=== PATIENT | female | born 1990 | race Caucasian/White ===

== ENCOUNTER 2018-09-07 14:21 | Emergency (ER) | payer MEDICAID, OTHER ==
[~2018-09-07] VITALS: Ht 162.6 cm; Wt 57.4 kg
[~2018-09-07 14:21] MED LIST: NO HOME MEDS
[2018-09-07 14:52] LABS: BASOPHILS % (AUTO) 0.7 % (0-1); EOSINOPHILS # (AUTO) 0.1 X10'3 (0-0.9); EOSINOPHILS % (AUTO) 2.4 % (0-6); HEMATOCRIT 45.9 % (35.0-45.0); HEMOGLOBIN 15.3 g/dl (12.0-16.0); LYMPHOCYTES # (AUTO) 1.8 X10'3 (1.1-4.8); LYMPHOCYTES % (AUTO) 29.8 % (21-51); MEAN CORPUSCULAR HEMOGLOBIN 30.4 PG (27.0-31.0); MEAN CORPUSCULAR HGB CONC 33.4 g/dL (33.0-36.5); MEAN PLATELET VOLUME 7.6 FL (7.4-10.4); MONOCYTES # (AUTO) 0.6 X10'3 (0-0.9); MONOCYTES % (AUTO) 9.7 % (2-12); NEUTROPHILS # (AUTO) 3.4 X10'3 (1.8-7.7); NEUTROPHILS % (AUTO) 57.4 % (42-75); PLATELET COUNT 277 X10'3 (140-440); RED BLOOD COUNT 5.04 X10'6 (4.20-5.60); RED CELL DISTRIBUTION WIDTH 12.9 % (11.5-14.5); WHITE BLOOD COUNT 5.9 X10'3 (4.5-11.0)
[2018-09-07 15:04] LABS: INR 1.1 INR; PARTIAL THROMBOPLASTIN TIME 30 SECONDS (22-32)
[2018-09-07 15:13] LABS: ALANINE AMINOTRANSFERASE 18 U/L (12-78); ALBUMIN 3.7 G/DL (3.4-5.0); ALBUMIN/GLOBULIN RATIO 1.1 (1.1-1.5); ALKALINE PHOSPHATASE 78 IU/L (46-116); ANION GAP 9 (8-16); ASPARTATE AMINO TRANSFERASE 13 U/L (10-37); BILIRUBIN,TOTAL 0.3 MG/DL (0.1-1.0); BLOOD UREA NITROGEN 10 MG/DL (7-18); BUN/CREATININE RATIO 11.4 (6.6-38.0); CALCIUM 9.2 MG/DL (8.5-10.1); CHLORIDE 104 MMOL/L (99-107); CREATININE 0.88 MG/DL (0.40-0.90); GLUCOSE 84 MG/DL (70-104); POTASSIUM 3.6 MMOL/L (3.5-5.1); SODIUM 138 MMOL/L (135-145); TOTAL CARBON DIOXIDE 24.7 MMOL/L (24-32); TOTAL PROTEIN 7.1 G/DL (6.4-8.2); eGFR 78 ML/MIN
[2018-09-07] MEDS ORDERED: sucralfate 1 gm tablet PO ONE (15:15)
[2018-09-07] MEDS ORDERED: mag hydrox/Alum hydrox/simeth 30ml oral suspension PO ONE (15:15)
[2018-09-07] MEDS ORDERED: LIDOcaine Viscous 15ml cup PO ONE (15:15)
[2018-09-07 15:30] VITALS: BP 125/80
[2018-09-07 15:44] LABS: URINE HCG NEGATIVE (NEG)
[2018-09-07 15:47] LABS: CLARITY,URINE CLEAR (Clear); COLOR,URINE YELLOW (Yellow); GLUCOSE, URINE NEGATIVE (Neg); KETONES,URINE NEGATIVE (Neg); LEUKOCYTE ESTERASE ,URINE NEGATIVE (Neg); NITRITES, URINE NEGATIVE (Neg); OCCULT BLOOD,URINE NEGATIVE (Neg); PROTEIN,URINE NEGATIVE (Neg); UA COLLECTION TYPE CLN CATCH MIDSTREAM
== END 2018-09-07 15:53 | disposition home or self-care (01) ==
LOC: ER 14:21
DX: R07.89 Other chest pain (principal); R10.13 Epigastric pain; R42 Dizziness and giddiness; R19.7 Diarrhea, unspecified; Z88.1 Allergy status to other antibiotic agents; Z88.0 Allergy status to penicillin
CPT/HCPCS: 36415; 71045; 80053; 81003; 81025; 84443; 84484; 85025; 85610; 85730; 93005; 99284

== ENCOUNTER 2020-05-30 16:02 | Emergency (ER) | payer BC, MEDICAID ==
[~2020-05-30] VITALS: Ht 162.6 cm; Wt 56.8 kg
[2020-05-30 16:16] VITALS: BP 130/82
[2020-05-30] MEDS ORDERED: ketorolac tromethamine 15mg/ml inj. IM ONE (16:45)
[2020-05-30] MEDS ORDERED: IBUP-1984 PO (16:52)
== END 2020-05-30 17:34 | disposition home or self-care (01) ==
LOC: ER 16:03
DX: M25.561 Pain in right knee (principal); Z72.89 Other problems related to lifestyle; Z88.1 Allergy status to other antibiotic agents; Z88.0 Allergy status to penicillin; Z79.899 Other long term (current) drug therapy
CPT/HCPCS: 29505; 73564; 99284

== ENCOUNTER 2020-06-20 02:06 | Emergency (ER) | payer BC, MEDICAID ==
[~2020-06-20] VITALS: Ht 162.6 cm; Wt 56.8 kg
[2020-06-20 02:07] VITALS: BP 123/87
[2020-06-20] MEDS ORDERED: ibuprofen tablet 400 MG TABLET PO ONE (02:25)
[2020-06-20] MEDS ORDERED: oxyCODONE/APAP 10/325mg tablet PO ONE (02:25)
[2020-06-20] MEDS ORDERED: OXYC-145 PO (03:40)
== END 2020-06-20 04:30 | disposition home or self-care (01) ==
LOC: ER 02:06
DX: S82.001A Unspecified fracture of right patella, initial encounter for closed fracture (principal); M25.561 Pain in right knee; F17.200 Nicotine dependence, unspecified, uncomplicated; Z88.0 Allergy status to penicillin; Z88.1 Allergy status to other antibiotic agents; Z79.899 Other long term (current) drug therapy; W18.39XA Other fall on same level, initial encounter; Y93.89 Activity, other specified; Y92.89 Other specified places as the place of occurrence of the external cause; Y99.8 Other external cause status
CPT/HCPCS: 29505; 73564; 99284

== ENCOUNTER 2020-07-11 06:00 | Day surgery (SDC) | payer BC, MEDICAID ==
[2020-07-11] VITALS (7 sets, daily range): BP systolic 110–126; BP diastolic 45–77
[~2020-07-11] VITALS: Ht 162.6 cm; Wt 55.8 kg
[~2020-07-11 06:00] MED LIST changes: +VANCOMYCIN INJ 1000 MG in NORMAL SALINE 250ml IV.SOLN IV ONE; +albuterol 2.5 MG/3 ML nebule NEB ONE; +clindamycin-Cleocin 900mg/D5W 50 ML IV ONE; +famotidine 20mg tablet PO ONE; +ringers solution, lacted 1,000 ML IV SCH
[2020-07-11 07:43] LABS: HCG SERUM QL NEGATIVE
[2020-07-11 07:44] LABS: BASOPHILS % (AUTO) 0.6 % (0-1); EOSINOPHILS # (AUTO) 0.2 X10'3 (0-0.9); EOSINOPHILS % (AUTO) 3.7 % (0-6); LYMPHOCYTES # (AUTO) 1.5 X10'3 (1.1-4.8); MEAN CORPUSCULAR HGB CONC 32.1 g/dL (33.0-36.5); MEAN CORPUSCULAR VOLUME 84.1 FL (78-98); MEAN PLATELET VOLUME 8.1 FL (7.4-10.4); MONOCYTES # (AUTO) 0.4 X10'3 (0-0.9); MONOCYTES % (AUTO) 7.6 % (2-12); NEUTROPHILS # (AUTO) 3.4 X10'3 (1.8-7.7); NEUTROPHILS % (AUTO) 61.1 % (42-75); PRE OP HEMOGLOBIN 13.5 g/dL (12.0-16.0); PRE OP PLATELET COUNT 253 X10'3 (140-440); RED CELL DISTRIBUTION WIDTH 16.2 % (11.5-14.5)
[2020-07-11 07:58] LABS: ALBUMIN 3.9 G/DL (3.4-5.0); ALBUMIN/GLOBULIN RATIO 1.1 (1.1-1.5); ALKALINE PHOSPHATASE 91 IU/L (46-116); BLOOD UREA NITROGEN 7 MG/DL (7-18); CALCIUM 8.7 MG/DL (8.5-10.1); CHLORIDE 107 MMOL/L (99-107); PRE OP ALT 15 U/L (30-65); PRE OP ANION GAP 10 (8-16); PRE OP AST 10 U/L (10-37); PRE OP BILIRUB, TOTAL 0.4 MG/DL (0.0-1.0); PRE OP GLUCOSE 101 MG/DL (70-104); PRE OP POTASSIUM 3.7 MMOL/L (3.4-5.1); PRE OP SODIUM 142 MMOL/L (135-145); TOTAL CARBON DIOXIDE 24.9 MMOL/L (24-32); TOTAL PROTEIN 7.3 G/DL (6.4-8.2); eGFR > 90 ML/MIN
[2020-07-11] MEDS ORDERED: ceFAZolin 1000mg inj ONE (08:33)
[2020-07-11] MEDS ORDERED: sevoflurane 250ml liquid IH ONE (10:30)
[2020-07-11] MEDS ORDERED: dexamethasone sod phosphate 10mg/ml inj ONE (10:30)
[2020-07-11] MEDS ORDERED: fentaNYL/PF 50MCG/1 ML 2ML syringe ONE (10:35)
[2020-07-11] MEDS ORDERED: midazolam 1 mg/ML 2ml injection ONE (10:35)
[2020-07-11] MEDS ORDERED: ondansetron/PF 4mg/2ml inj ONE (10:36)
[2020-07-11] MEDS ORDERED: propofol inj 20 ML IV ONE (10:36)
[2020-07-11] MEDS ORDERED: ROPIVAcaine 0.5% (5mg/ml) 30ml vial ONE (10:36)
[2020-07-11] MEDS ORDERED: LIDOcaine 2% (20mg/ml) 5ml vial ONE (10:36)
[2020-07-11] MEDS ORDERED: morphine 4 MG/ML inj SYRINge IV PRN (11:05)
[2020-07-11] MEDS ORDERED: hydrALAZINE 20mg/ml inj. IV PRN (11:05)
[2020-07-11] MEDS ORDERED: ondansetron/PF 4mg/2ml inj IV PRN (11:05)
[2020-07-11] MEDS ORDERED: ringers solution, lacted 1,000 ML IV SCH (11:05)
[2020-07-11] MEDS ORDERED: fentaNYL/PF 50MCG/1 ML 2ML syringe IV PRN ×2 (11:05)
[2020-07-11] MEDS ORDERED: morphine 2 MG/ML inj. syringe IV PRN (11:05)
[2020-07-11] MEDS ORDERED: labetalol 20mg/4ml (5mg/ml) syringe IV PRN (11:05)
--- NOTE | 2020-07-11 12:00 | NUR ---
ADMITTED TO PACU FROM OR ACCOMPANIED BY ANESTHESIA. INTIAL PHYSICAL ASSESSMENT DONE AND RECORDED. REPORT RECEIVED FROM ANESTHESIA.
--- NOTE | 2020-07-11 13:00 | NUR ---
DISCHARGE CRITERIA MET, DISCHARGE INSTRUCTIONS GIVEN, DEMONSTRATES VERBAL UNDERSTANDING. DISCHARGED HOME IN GOOD CONDITION.
== END 2020-07-11 13:00 | disposition home or self-care (01) ==
LOC: PAS 06:00
PROVIDERS: ATTEND Orthopaedic Surgery
DX: S76.111A Strain of right quadriceps muscle, fascia and tendon, initial encounter (principal); G89.18 Other acute postprocedural pain; Z79.899 Other long term (current) drug therapy; Z98.51 Tubal ligation status; F17.210 Nicotine dependence, cigarettes, uncomplicated; Z72.89 Other problems related to lifestyle; Z88.0 Allergy status to penicillin; Z20.822 Contact with and (suspected) exposure to COVID-19; W10.8XXA Fall (on) (from) other stairs and steps, initial encounter; Y93.89 Activity, other specified; Y92.89 Other specified places as the place of occurrence of the external cause; Y99.8 Other external cause status
CPT/HCPCS: 27385; 36415; 64447; 76942; 80053; 84703; 85025; 87426; 94640; J0690; J1100; J2001; J2250; J2405; J2704; J3010; J3370; J7120; A4618; A6449; A7000; J2795; J3490

== ENCOUNTER 2020-07-13 14:37 | Emergency (ER) | payer BC, MEDICAID ==
[~2020-07-13] VITALS: Ht 162.6 cm; Wt 55.9 kg
[~2020-07-13 14:37] MED LIST changes: -VANCOMYCIN INJ 1000 MG in NORMAL SALINE 250ml IV.SOLN IV ONE; -albuterol 2.5 MG/3 ML nebule NEB ONE; -clindamycin-Cleocin 900mg/D5W 50 ML IV ONE; -famotidine 20mg tablet PO ONE; -ringers solution, lacted 1,000 ML IV SCH
[2020-07-13] MEDS ORDERED: HYDROcodone/acetaminophen 5mg/325mg tablet PO ONE (16:40)
[2020-07-13] MEDS ORDERED: ketorolac tromethamine 15mg/ml inj. IM ONE (16:40)
[2020-07-13] MEDS ORDERED: ondansetron 4mg rapidly disintigrating tab PO ONE (16:40)
[2020-07-13 17:53] VITALS: BP 119/84
== END 2020-07-13 17:51 | disposition home or self-care (01) ==
LOC: ER 14:38
DX: G89.18 Other acute postprocedural pain (principal); M25.561 Pain in right knee; Z72.89 Other problems related to lifestyle; Z88.0 Allergy status to penicillin; Z88.1 Allergy status to other antibiotic agents; Z79.899 Other long term (current) drug therapy
CPT/HCPCS: 93971; 96372; 99284; J1885

== ENCOUNTER 2020-08-19 16:00 | Emergency (ER) | payer BC, MEDICAID ==
[~2020-08-19] VITALS: Ht 162.6 cm; Wt 55.9 kg
[2020-08-19 16:02] VITALS: BP 150/102
[2020-08-19] MEDS ORDERED: ketorolac trometh inj. 60 MG/2 ML VIAL IM ONE (16:15)
[2020-08-19] MEDS ORDERED: morphine 4 MG/ML inj SYRINge IM ONE (16:15)
[2020-08-19] MEDS ORDERED: ketorolac trometh. 30mg/ml inj. IM ONE (16:25)
[2020-08-19] MEDS ORDERED: HYDROcodone/acetaminophen 10/325mg tab PO ONE (17:35)
[2020-08-19] MEDS ORDERED: HYDR-3972 PO (17:40)
== END 2020-08-19 17:43 | disposition home or self-care (01) ==
LOC: ER 16:01
DX: S89.91XA Unspecified injury of right lower leg, initial encounter (principal); M79.651 Pain in right thigh; M25.551 Pain in right hip; M25.561 Pain in right knee; Z98.890 Other specified postprocedural states; Z88.0 Allergy status to penicillin; Z88.1 Allergy status to other antibiotic agents; Z79.899 Other long term (current) drug therapy; W18.39XA Other fall on same level, initial encounter; Y93.89 Activity, other specified; Y92.89 Other specified places as the place of occurrence of the external cause; Y99.8 Other external cause status
CPT/HCPCS: 29505; 73502; 73552; 73560; 96372; 99284; J1885; J2270

== ENCOUNTER 2022-12-24 10:48 | Emergency (ER) | payer BC, MEDICAID ==
[~2022-12-24] VITALS: Ht 162.6 cm; Wt 53.6 kg
[2022-12-24 11:00] VITALS: BP 116/71; PULSE 85; RESP 16; TEMP 98.5; O2SAT 100
[2022-12-24] MEDS ORDERED: NAPR-56 PO (12:04)
[2022-12-24] MEDS ORDERED: CYCL-1 PO (12:04)
== END 2022-12-24 12:28 | disposition home or self-care (01) ==
LOC: ER 10:48
DX: S70.11XA Contusion of right thigh, initial encounter (principal); Z72.89 Other problems related to lifestyle; Z98.890 Other specified postprocedural states; Z88.0 Allergy status to penicillin; Z88.1 Allergy status to other antibiotic agents; X58.XXXA Exposure to other specified factors, initial encounter; Y93.89 Activity, other specified; Y92.89 Other specified places as the place of occurrence of the external cause; Y99.8 Other external cause status
CPT/HCPCS: 99284

== ENCOUNTER 2024-09-13 01:43 | Emergency (ER) | payer MEDICAID ==
[~2024-09-13] VITALS: Ht 165.1 cm; Wt 58.7 kg
[~2024-09-13 01:43] MED LIST changes: +CYCL-1 PO
[2024-09-13 01:49] VITALS: BP 108/75; PULSE 92; RESP 18; O2SAT 98
[2024-09-13 02:45] VITALS: TEMP 97.4
== END 2024-09-13 02:47 | disposition left against medical advice (07) ==
LOC: ER 01:44
DX: S61.411A Laceration without foreign body of right hand, initial encounter (principal); Z53.21 Procedure and treatment not carried out due to patient leaving prior to being seen by health care provider; Z88.0 Allergy status to penicillin; Z88.1 Allergy status to other antibiotic agents; W25.XXXA Contact with sharp glass, initial encounter; Y93.89 Activity, other specified; Y92.89 Other specified places as the place of occurrence of the external cause; Y99.8 Other external cause status
CPT/HCPCS: A6258; A6446